=== PATIENT | male | born 1930 | race Caucasian/White ===

== ENCOUNTER → 2018-04-13 | Outpatient (CLI) | payer MEDICARE, BC ==
--- NOTE | 2018-04-13 20:49 | XCELERA REPORT ---
[address] [address] Lower Extremity Arterial Evaluation Name: JENNY SAWANT Age: 87 yrs Gender: Male : 1930 Patient Status: Outpatient Patient Location: RAD Study Date: 04/13/2018 10:37 AM Procedure: A color flow and duplex scan of the lower extremity arteries was performed bilaterally with velocity and waveform anaylsis. Ankle brachial indicies performed. Reason For Study: PVD Ordering Physician: CARLIE ROSARIO Performed By: Fidel Lopes Measurements and Calculations Right Left [employer] PSV 146.7 111.3 cm/sec Prox PFA PSV -73.2 -61.1 cm/sec Prox SFA PSV 89.3 89.4 cm/sec Mid SFA PSV -109.2 -109.4cm/sec Dist SFA PSV -97.4 -111.3cm/sec Prox Pop A PSV 82.0 100.6 cm/sec Dist PRECIOUS PSV 87.4 80.8 cm/sec Dist [employer] SALES [employer]ORDINATOR PSV 84.5 59.4 cm/sec Tye Pedis PSV -242.7 -125.1cm/sec Right Side Arterial Evaluation Normal velocity and triphasic waveforms noted from the Common Femoral artery to the infrageniculate vessels.Elecvated velocity in the Dorsalsi Pedis. Posibly srtefactual. 0 % stenosis. Ankle Brachial index is 1.17. Left Side Arterial Evaluation Normal velocity and triphasic waveforms noted from the Common Femoral artery to the infrageniculate vessels.Elecvated velocity in the Dorsalsi Pedis. Posibly srtefactual. 0 % stenosis. Ankle Brachial index is 1.22. Interpretation Summary No hemodynamically significant lesions in the bilateral lower extremities, on duplex imaging, at rest. : CARLIE ROSARIO > [facility]il[facility]
== END ==
LOC: RAD 09:39
PROVIDERS: ATTEND Internal Medicine
DX: M54.16 Radiculopathy, lumbar region (principal); M25.551 Pain in right hip; I73.9 Peripheral vascular disease, unspecified
CPT/HCPCS: 93925

== ENCOUNTER → 2018-04-17 | Outpatient (CLI) | payer MEDICARE, BC ==
--- NOTE | 2018-04-17 17:25 | RADIOLOGY REPORT (SQ) ---
EXAM DESCRIPTION: MRI RT LOWER JOINT WITHOUT COMPLETED DATE/TIME: 04/17/2018 5:01 pm REASON FOR STUDY: M54.16 RADICULOPATHY, LUMBAR REGION M25.551 PAIN IN RIGHT HIP M54.16 RADICULOPATH Y, LUMBAR REGION M25.551 PAIN IN RIGHT HIP COMPARISON: None. TECHNIQUE: Righthip images acquired and stored on PACS. Multiplanar images to include fat sensitive sequences as T1, fluid sensitive sequences as T2/STIR and gradient echo sequences. Large FOV fat and fluid sensitive sequences include pelvis and opposite hip. LIMITATIONS: None. FINDINGS: BONE CORTEX AND MARROW: No generalized marrow replacement. No occult fracture. No worriso me bone lesions. RIGHT HIP: FEMORAL HEAD: No occult fracture. No osteophytes or subchondral cysts. Normal sphericity of femoral h ead/neck junction. No acetabular dysplasia. No evidence femoroacetabular impingement. No significant effusion. Very mild chondromalacia right femoral head. ACETABULUM: No acetabular dysplasia. No subchondral cysts. LABRUM: Diffuse delamination. Labrum is normal size. No paralabral cysts. TROCHANTER: No trochanteric bursal effusion. No edema/fluid at the insertions of the gluteus medius and gluteus minimus. LEFT HIP: Limited evaluation. No worrisome bone lesions. No significant effusion. PELVIS, LOWER LUMBAR SPINE, SACROILIAC JOINTS: PELVIS : No insufficiency/stress fractures. No significant degenerative changes. Sacroiliac joints normal. L SPINE: No significant osteophytes or degenerative changes of the visualized lumbar spine. MUSCLES AND SOFT TISSUES: Adductors and piriformis normal. Abductors and greater trochanteric bursa n ormal without edema or fluid. Iliopsoas bursa without fluid. Hamstring attachments without edema or t ear. PELVIC SOFT TISSUES: Enlarged prostate IMPRESSION: Mild degenerative change right acetabular labrum without paralabral cyst. TECHNICAL DOCUMENTATION: JOB ID: [id number] [employer]- All Rights Reserved Reading location - IP/workstation name: [email or web address]
--- NOTE | 2018-04-17 17:29 | RADIOLOGY REPORT (SQ) ---
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 TECHNIQUE: Sagittal and Axial imaging includes T1, T2, STIR and gradient echo sequences. Coronal T2/ HASTE imaging. LIMITATIONS: None. FINDINGS: VISUALIZED UPPER ABDOMEN: Limited evaluation. No acute or suspicious findings suggested. SEGMENTATION: No transitional anatomy. The lowest well-developed disc space is labeled L5-S1. ALIGNMENT: Anatomic. VERTEBRAE: Intact. BONE MARROW: Normal. No marrow replacement or reactive changes. DISC SIGNAL: Diffuse decreased T2 weighted intervertebral disc signal POSTERIOR ELEMENTS: Generally intact. No pars defect evident. HARDWARE: None in the spine. CORD AND CONUS: Normal in size and signal intensity. Conus at the L1-2 level. SOFT TISSUES: No aortic aneurysm seen. No bulky retroperitoneal adenopathy or mass. No paraspinal mas s or fluid. T12-L1: Unremarkable L1-L2: Unremarkable L2-L3: Minimal posterior disc bulging, mild bilateral facet hypertrophy. No central stenosis. Mild inferior right foraminal narrowing. No left inferior foraminal narrowing. L3-L4: Broad diffuse posterior disc bulge is present with moderate bilateral facet and ligament hyper trophy. Mild central canal stenosis. High-grade right foraminal narrowing with effacement of the fa t around the exiting right L3 nerve root on sagittal image 5. Moderate left foraminal narrowing with out definite left exiting L3 nerve root impingement. L4-L5: Mild diffuse posterior disc bulge and bony spurring right greater than left, mild bilateral fa cet hypertrophy. No central stenosis. High-grade right foraminal narrowing with effacement of the f at around the exiting right L4 nerve root best shown on sagittal image 5. Moderate to high-grade lef t foraminal narrowing. L5-S1: Broad diffuse posterior disc bulge and bony spurring with moderate bilateral facet hypertrophy . No central stenosis. High-grade right foraminal narrowing, high-grade left foraminal narrowing wi th effacement of fat around the exiting L5 nerve roots bilaterally. SACRUM: Visualized upper sacrum intact. OTHER: No other significant findings. IMPRESSION: Multilevel significant lower lumbar foraminal narrowing TECHNICAL DOCUMENTATION: JOB ID: [id number] [employer]- All Rights Reserved Reading location - IP/workstation name: [email or web address]
== END ==
LOC: RAD 17:10
PROVIDERS: ATTEND Internal Medicine
DX: M25.551 Pain in right hip (principal); M54.16 Radiculopathy, lumbar region; I73.9 Peripheral vascular disease, unspecified; M48.061 Spinal stenosis, lumbar region without neurogenic claudication
CPT/HCPCS: 72148

== ENCOUNTER → 2020-01-14 | Outpatient (CLI) | payer MEDICARE, BC ==
--- NOTE | 2020-01-14 15:53 | RADIOLOGY REPORT (SQ) ---
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 TECHNIQUE: Multiplanar imaging includes non-contrasted T1, T2, FLAIR, and diffusion with ADC map seq uences. Images stored on PACS. LIMITATIONS: None. FINDINGS: There is diffuse age-appropriate cerebral and cerebellar volume loss. The caliber of the ventricles is concordant with the degree of sulcation. The mild areas of high T2/FLAIR signal throughout the supratentorial periventricular and subcortical white matter are nonspecific and likely represent the sequela of chronic microvascular ischemia. The re is no restricted diffusion on the DWI. There is no acute intracranial hemorrhage, extra-axial flu id collection, mass effect, vasogenic edema, or midline shift. The pagan-white matter differentiation is preserved. There is no effacement of the cerebral sulci or basal subarachnoid cisterns. The intracranial vascular flow voids are preserved. There is no susceptibility artifact on the gradi ent sequence. The globes are aphakic. The paranasal sinuses are clear. There is no bone marrow signal abnormality . IMPRESSION: No acute intracranial abnormality. EVIDENCE OF ACUTE STROKE: NO. TECHNICAL DOCUMENTATION: JOB ID: [id number] 2010 [employer]- All Rights Reserved Reading location - IP/workstation name: [email or web address]
== END ==
LOC: RAD 14:18
PROVIDERS: ATTEND Internal Medicine
DX: G46.4 Cerebellar stroke syndrome (principal)
CPT/HCPCS: 70551

== ENCOUNTER 2020-01-16 13:13 | Emergency (ER) | payer MEDICARE, BC ==
[2020-01-16] MEDS ORDERED: DIPH/PERTUSS(ACELL)/TETANUS VAC/PF 0.5 ML SYR (>=10YO) IM ONE (14:04)
--- NOTE | 2020-01-16 14:10 | RADIOLOGY REPORT (SQ) ---
EXAM DESCRIPTION: CT HEAD WITHOUT IMAGES COMPLETED DATE/TIME: 01/16/2020 1:58 pm REASON FOR STUDY: fall; lac to the back of the head COMPARISON: MRI a of the head without contrast from 01/14/2020. TECHNIQUE: Axial images acquired through the brain without intravenous contrast. Images reviewed wi th bone, brain and subdural windows. Additional sagittal and coronal reconstructions were generated. Images stored on PACS. All CT scanners at this facility use dose modulation, iterative reconstruction, and/or weight based d osing when appropriate to reduce radiation dose to as low as reasonably achievable (ALARA). [facility]: Dose Right [facility]: CareDose [facility]: Dose Right [facility]: Teradose 4D [facility]: [employer] RADIATION DOSE: CT Rad equipment meets quality standard of care and radiation dose reduction techniq ues were employed. CTDIvol: 53.2 mGy. DLP: 1044 mGy-cm. LIMITATIONS: None. FINDINGS: There is diffuse age-appropriate cerebral and cerebellar volume loss. The caliber of the ventricles is concordant with the degree of sulcation. The confluent areas of hypoattenuation throug hout the supratentorial periventricular and subcortical white matter correspond to the areas of high T2/FLAIR signal on the correlative MRI and likely represent the sequela of chronic microvascular isch emia. There is no acute intracranial hemorrhage, vascular territorial infarct, extra-axial fluid collection , mass effect or midline shift. The pagan-white matter differentiation is preserved. There is no eff acement of cerebral sulci or basal subarachnoid cisterns. The globes are aphakic. The orbits are intact. The paranasal sinuses are clear. There is no fractu re of the calvarium. IMPRESSION: No acute intracranial abnormality. EVIDENCE OF ACUTE STROKE: NO. COMMENT: Quality ID # [id number]: Final reports with documentation of one or more dose reduction techniques (e.g., Automated exposure control, adjustment of the mA and/or kV according to patient size, use of iterative reconstruction technique) TECHNICAL DOCUMENTATION: JOB ID: [id number] 2010 [employer]- All Rights Reserved Reading location - IP/workstation name: [email or web address]
--- NOTE | 2020-01-16 14:11 | ER Document Report ---
ED Fall - General Chief Complaint: Fall Injury Stated Complaint: FALL Time Seen by Provider: 01/16/20 13:44 Primary Care Provider: CARLIE ROSARIO MD [Primary Care Provider] - Follow up tomorrow Information source: Patient Notes: Patient reports that he was at work and lost his footing and fell hitting the back of his head. Patient states that occasionally when he gets up he will feel off balance. Patient states he does have a history of vertigo and his blood pressure has been low recently. Patient denies any loss of consciousness. Patient denies any nausea or vomiting. TRAVEL OUTSIDE OF THE [place] IN LAST 30 DAYS: No - HPI Occurred: Just prior to arrival Where: Work Context: Tripped Associated symptoms: denies: Lost consciousness Location of injury/pain: Head Quality of pain: Achy Pain Level: 1 Prehospital interventions: C-collar - Related data Allergies/Adverse Reactions: No Known Allergies Allergy (Verified 01/16/20 13:24) Past Medical History - General Information source: Patient - Social History Smoking Status: Never Smoker Frequency of alcohol use: None Drug Abuse: None Occupation: [employer] business Family History: Reviewed & Not Pertinent Patient has homicidal ideation: No Neurological Medical History: Reports: Other - Vertigo Renal/ Medical History: Reports: Hx Benign Prostatic Hyperplasia Surgical Hx: Negative Review of Systems - Review of Systems Constitutional: No symptoms reported. denies: Fever EENT: No symptoms reported Cardiovascular: No symptoms reported. denies: Chest pain, Syncope, Dizziness Respiratory: No symptoms reported. denies: Cough, Short of breath Gastrointestinal: No symptoms reported. denies: Abdominal pain, Nausea, Vomiting Genitourinary: No symptoms reported Male Genitourinary: No symptoms reported Musculoskeletal: No symptoms reported. denies: Back pain, Neck pain Skin: Other - Laceration of scalp Hematologic/Lymphatic: No symptoms reported Neurological/Psychological: Other - Vertigo Physical Exam - Vital signs Vitals: Temp 98.4 F 01/16/20 13:14 - General General appearance: Appears well, Alert In distress: None - HEENT Head: Tenderness - occipital. No: Abrasions, Ecchymosis, Racoon's eyes Eyes: Normal Conjunctiva: Normal Extraocular movements intact: Yes Pupils: PERRL Nasal: Normal Mouth/Lips: Normal Mucous membranes: Normal Neck: Normal, Supple. No: Lymphadenopathy - Respiratory Respiratory status: No respiratory distress Chest status: Nontender Breath sounds: Normal. No: Rales, Rhonchi, Stridor, Wheezing Chest palpation: Normal - Cardiovascular Rhythm: Regular Heart sounds: S1 appreciated, S2 appreciated - Abdominal Inspection: Normal Distension: No distension Bowel sounds: Normal Tenderness: Nontender Organomegaly: No organomegaly - Back Back: Normal, Nontender. No: Vertebra tenderness - Extremities General upper extremity: Normal inspection, Nontender, Normal strength General lower extremity: Normal inspection, Nontender, Normal strength - Neurological Neuro grossly intact: Yes Cognition: Normal Felix Coma Scale Eye Opening: Spontaneous Felix Coma Scale Verbal: Oriented [place] Coma Scale Motor: Obeys Commands [place] Coma Scale Total: 15 - Psychological Associated symptoms: Normal affect, Normal mood - Skin Skin Temperature: Warm Skin Moisture: Dry Skin Color: Normal Skin irregularity: Laceration - occipital scalp lac Course - Re-evaluation Re-evalutation: 01/16/20 14:50 offered patient wound closure with a single staple, patient declines stating that if wound is not gaping he preferred to not have any wound closure at this time. Patient states that whenever he stands he did become dizzy. We will obtain orthostatics and treat symptomatically at this time. 01/16/20 18:00 Patient states that he is agreeable with skin glue adhesive closure at this time. 01/16/20 18:37 Patient with stable vital signs, patient without any acute findings on CT imaging. Patient with normal EKG and normal delta troponin at this time. Patient was initially orthostatic and was treated with IV fluid bolus. Will advise for outpatient follow-up with his primary doctor for reevaluation. Discussed worsening signs or symptoms of patient to return medially for. Patient verbalized understanding and is agreeable with plan of care. - Vital Signs Vital signs: Temp Pulse Resp BP Pulse Ox 97.7 F 78 16 123/45 L 99 01/16/20 19:28 01/16/20 19:28 01/16/20 19:28 01/16/20 19:28 01/16/20 19:28 - Laboratory Result Diagrams: 01/16/20 13:34 01/16/20 13:34 Laboratory results interpreted by me: 01/16/20 01/16/20 01/16/20 13:34 13:34 14:15 RBC 4.00 L Hgb 13.3 L Sodium 136.6 L BUN 24 H Est GFR (MDRD) Non-Af 56 L Glucose 113 H Urine Blood SMALL H Labs- All tests 24 hr 01/16/20 01/16/20 01/16/20 13:34 13:34 13:34 WBC 4.9 RBC 4.00 L Hgb 13.3 L Hct 38.1 MCV 95 MCH 33.3 MCHC 35.0 RDW 13.9 Plt Count 199 Lymph % (Auto) 21.9 [place] % (Auto) 7.8 Eos % (Auto) 3.7 Baso % (Auto) 0.7 Absolute Neuts (auto) 3.3 Absolute Lymphs (auto) 1.1 Absolute Monos (auto) 0.4 Absolute Eos (auto) 0.2 Absolute Basos (auto) 0.0 Seg Neutrophils % 65.9 Sodium 136.6 L Potassium 4.7 Chloride 104 Carbon Dioxide 26 Anion Gap 7 BUN 24 H Creatinine 1.23 Est GFR ( Amer) > 60 Est GFR (MDRD) Non-Af 56 L Glucose 113 H Calcium 9.2 Total Bilirubin 0.9 Direct Bilirubin 0.1 Neonat Total Bilirubin Not Reportable Neonat Direct Bilirubin Not Reportable Neonat Indirect Bili Not Reportable AST 18 ALT 11 Alkaline Phosphatase 71 Troponin I < 0.012 Total Protein 7.2 Albumin 4.3 Urine Color Urine Appearance Urine pH Ur Specific [place] Urine Protein Urine Glucose (UA) Urine Ketones Urine Blood Urine Nitrite Urine Bilirubin Urine Urobilinogen Ur Leukocyte Esterase Urine WBC (Auto) Urine RBC (Auto) Urine Mucus (Auto) Urine Ascorbic Acid 01/16/20 01/16/20 14:15 14:54 WBC RBC Hgb Hct MCV MCH MCHC RDW Plt Count Lymph % (Auto) [place] % (Auto) Eos % (Auto) Baso % (Auto) Absolute Neuts (auto) Absolute Lymphs (auto) Absolute Monos (auto) Absolute Eos (auto) Absolute Basos (auto) Seg Neutrophils % Sodium Potassium Chloride Carbon Dioxide Anion Gap BUN Creatinine Est GFR ( Amer) Est GFR (MDRD) Non-Af Glucose Calcium Total Bilirubin Direct Bilirubin Neonat Total Bilirubin Neonat Direct Bilirubin Neonat Indirect Bili AST ALT Alkaline Phosphatase Troponin I < 0.012 Total Protein Albumin Urine Color STRAW Urine Appearance CLEAR Urine pH 6.0 Ur Specific [place] 1.008 Urine Protein NEGATIVE Urine Glucose (UA) NEGATIVE Urine Ketones NEGATIVE Urine Blood SMALL H Urine Nitrite NEGATIVE Urine Bilirubin NEGATIVE Urine Urobilinogen NEGATIVE Ur Leukocyte Esterase NEGATIVE Urine WBC (Auto) 1 Urine RBC (Auto) 1 Urine Mucus (Auto) RARE Urine Ascorbic Acid NEGATIVE - Diagnostic Test Radiology reviewed: Reports reviewed - EKG Interpretation by Me EKG shows normal: Sinus rhythm Rate: Normal Rhythm: NSR [place]/QRS: RBBB Additional EKG results interpreted by me: 01/16/20 14:34 No acute ischemic change, QTC 477, sinus rhythm with rate of 68 Procedures - Laceration/Wound Repair Head Wound length (cm): 1 Wound's Depth, Shape: Irregular Laceration pre-procedure: Shur-Clens applied Wound explored: Clean Wound Repaired With: Dermabond Post-procedure NV exam normal: Yes Complications: No Adult Head Front/Back picture: 1 - Irregular laceration Discharge - Discharge Clinical Impression: Dizziness, Dehydration Head injury Qualifiers: Encounter type: initial encounter Qualified Code(s): S09.90XA - Unspecified injury of head, initial encounter Condition: Stable Disposition: HOME, SELF-CARE Instructions: Acetaminophen, Dizziness ([facility]), Head Injury Precautions ([facility]), Skin Adhesive Closure ([facility]), Vertigo ([facility]) Additional Instructions: Return immediately for any new or worsening symptoms Followup with your primary care provider, call tomorrow to make a followup appointment Change positions slowly when you are getting up to prevent falls Stay well-hydrated Referrals: CARLIE ROSARIO MD [Primary Care Provider] - Follow up tomorrow
[2020-01-16 14:12] LABS: ABSOLUTE EOSINOPHILS # (AUTO) 0.2 10^3/uL (0.0-0.6); ABSOLUTE LYMPHOCYTES (AUTO) 1.1 10^3/uL (0.5-4.7); ABSOLUTE MONOCYTES (AUTO) 0.4 10^3/uL (0.1-1.4); ABSOLUTE NEUT (AUTO) 3.3 10^3/uL (1.7-8.2); TOTAL CELLS COUNTED % (AUTO) 100 %
--- NOTE | 2020-01-16 14:15 | RADIOLOGY REPORT (SQ) ---
EXAM DESCRIPTION: CT CERVICAL SPINE WITHOUT IMAGES COMPLETED DATE/TIME: 01/16/2020 1:58 pm REASON FOR STUDY: fall; lac to the back of the head COMPARISON: None. TECHNIQUE: Axial images acquired through the cervical spine without intravenous contrast. Images re viewed with lung, soft tissue and bone windows. Reconstructed coronal and sagittal MPR images review ed. Images stored on PACS. All CT scanners at this facility use dose modulation, iterative reconstruction, and/or weight based d osing when appropriate to reduce radiation dose to as low as reasonably achievable (ALARA). [facility]: Dose Right [facility]: CareDose [facility]: Dose Right [facility]: Teradose 4D [facility]: [employer] RADIATION DOSE: CT Rad equipment meets quality standard of care and radiation dose reduction techniq ues were employed. CTDIvol: 19.4 mGy. DLP: 443 mGy-cm. LIMITATIONS: None. FINDINGS: ALIGNMENT: There is straightening of the normal lordotic curvature of the cervical spine w ith grade 1 retrolisthesis of C2 relative to C3 and of C6 relative to C7. There is no craniocervical or atlantoaxial dissociation. MINERALIZATION: Osteopenia. VERTEBRAL BODIES: The cervical vertebral body heights are intact. There is no fracture. DISCS: The intervertebral discs from C3-C4 to C7-T1 are narrowed. At C5-C6 there is a posterior oste ophytic ridge that encroaches on the ventral aspect of the thecal sac. FACETS, LATERAL MASSES, POSTERIOR ELEMENTS: There is moderate foraminal stenosis bilaterally at C5-C6 and C6-C7 due to a combination of facet joint arthropathy and uncovertebral hypertrophy. There is n o fracture or malalignment. HARDWARE: None in the spine. VISUALIZED RIBS: No fractures. LUNG APICES AND SOFT TISSUES: The thyroid gland is enlarged and heterogeneous. OTHER: No other finding. IMPRESSION: No acute fracture or malalignment of the cervical spine. TECHNICAL DOCUMENTATION: JOB ID: [id number] Quality ID # [id number]: Final reports with documentation of one or more dose reduction techniques (e.g., Au tomated exposure control, adjustment of the mA and/or kV according to patient size, use of iterative reconstruction technique) 2010 [employer]- All Rights Reserved Reading location - IP/workstation name: [email or web address]
[2020-01-16 14:21] LABS: BASOPHILS % (AUTO) 0.7 % (0-2); EOSINOPHILS % (AUTO) 3.7 % (0-6); HEMATOCRIT 38.1 % (37.9-51.0); HEMOGLOBIN 13.3 g/dL (13.5-17.0); LYMPHOCYTES % (AUTO) 21.9 % (13-45); MEAN CORPUSCULAR HEMOGLOBIN 33.3 pg (27.0-33.4); MEAN CORPUSCULAR VOLUME 95 fl (80-97); MONOCYTES % (AUTO) 7.8 % (3-13); PLATELET COUNT 199 10^3/uL (150-450); RED CELL DISTRIBUTION WIDTH 13.9 % (11.5-14.0); SEGMENTED NEUTROPHILS % (AUTO) 65.9 % (42-78); WHITE BLOOD COUNT 4.9 10^3/uL (4.0-10.5)
[2020-01-16 14:22] LABS: ALBUMIN 4.3 g/dL (3.5-5.0); ALKALINE PHOSPHATASE 71 U/L (38-126); ANION GAP 7 (5-19); ASPARTATE AMINO TRANSFERASE 18 U/L (17-59); BILIRUBIN,DIRECT 0.1 mg/dL (0.0-0.4); BILIRUBIN,TOTAL 0.9 mg/dL (0.2-1.3); BLOOD UREA NITROGEN 24 mg/dL (7-20); CALCIUM 9.2 mg/dL (8.4-10.2); CARBON DIOXIDE 26 mmol/L (22-30); CHLORIDE 104 mmol/L (98-107); GLUCOSE 113 mg/dL (75-110); POTASSIUM 4.7 mmol/L (3.6-5.0); TOTAL PROTEIN 7.2 g/dL (6.3-8.2)
[2020-01-16 14:45] LABS: APPEARANCE,URINE CLEAR; BILIRUBIN,URINE NEGATIVE (NEGATIVE); COLOR,URINE STRAW; GLUCOSE, URINE NEGATIVE (NEGATIVE); KETONES,URINE NEGATIVE (NEGATIVE); LEUKOCYTE ESTERASE,URINE NEGATIVE (NEGATIVE); NITRITE,URINE NEGATIVE (NEGATIVE); PROTEIN,URINE NEGATIVE (NEGATIVE); URINE SPECIFIC GRAVITY 1.008; UROBILINOGEN,URINE NEGATIVE mg/dL (<2.0)
[2020-01-16] MEDS ORDERED: MECLIZINE HCL 25 MG TABLET PO ONE (14:47)
[2020-01-16] MEDS ORDERED: ONDANSETRON 4 MG TAB.RAPDIS PO ONE (14:47)
[2020-01-16] MEDS ORDERED: NORMAL SALINE 1000 ML 1,000 ML IV ONE (15:20)
[2020-01-16 19:34] VITALS: BP 123/45
--- NOTE | 2020-01-17 08:02 | EKG REPORT ---
SEVERITY:- ABNORMAL ECG - SINUS RHYTHM RIGHT BUNDLE BRANCH BLOCK : Confirmed by: Tracie Cardoso MD 17-Jan-2020 08:01:45
== END 2020-01-16 19:31 | disposition home or self-care (01) ==
LOC: ER 13:13
DX: S01.01XA Laceration without foreign body of scalp, initial encounter (principal); W19.XXXA Unspecified fall, initial encounter; Y99.0 Civilian activity done for income or pay; I45.10 Unspecified right bundle-branch block; E86.0 Dehydration; R42 Dizziness and giddiness
CPT/HCPCS: 93005; 99284; 96360; 36415; 85025; 80053; 81001; 84484; 70450; 72125; 90715; 93010; 12001; A9270 ×2; J7030; S0119

== ENCOUNTER → 2020-02-28 | Outpatient (CLI) | payer MEDICARE, BC ==
--- NOTE | 2020-02-28 18:05 | RADIOLOGY REPORT (SQ) ---
EXAM DESCRIPTION: CTA CHEST IMAGES COMPLETED DATE/TIME: 02/28/2020 5:30 pm REASON FOR STUDY: R06.02 SHORTNESS OF BREATH R06.02 SHORTNESS OF BREATH COMPARISON: None. TECHNIQUE: CT scan of the chest performed using helical scanning technique with dynamic intravenous contrast injection. Images reviewed with lung, soft tissue and bone windows. Reconstructed coronal and sagittal MPR images reviewed. Additional 3 dimensional post-processing performed to develop Maximal Intensity Projection images (FL P). All images stored on PACS. All CT scanners at this facility use dose modulation, iterative reconstruction, and/or weight based d osing when appropriate to reduce radiation dose to as low as reasonably achievable (ALARA). [facility]: Dose Right [facility]: CareDose [facility]: Dose Right [facility]: Teradose 4D [facility]: [employer] CONTRAST TYPE AND DOSE: contrast/concentration: Isovue 300.00 mmol/ml; Total Contrast Delivered: 74. 0 ml; Total Saline Delivered: 36.3 ml 74 mL Isovue 300- low osmolar. Contrast bolus adequate for pulmonary arteries and aorta. RENAL FUNCTION: Creatinine 1.6 RADIATION DOSE: CT Rad equipment meets quality standard of care and radiation dose reduction techniq ues were employed. CTDIvol: 6.6 - 25.4 mGy. DLP: 1072 mGy-cm. . LIMITATIONS: None. FINDINGS: LUNGS AND PLEURA: Pleural/parenchymal scarring in the apices. No masses, infiltrates, or pleural effusions. AORTA AND GREAT VESSELS: No aneurysm. No dissection. HEART: Cardiomegaly. No pericardial effusion. No significant coronary artery calcifications. PULMONARY ARTERIES: No emboli visualized in the main pulmonary arteries or the segmental branches. HILAR AND MEDIASTINAL STRUCTURES: No identified masses or abnormal nodes. HARDWARE: None in the chest. UPPER ABDOMEN: No significant findings. Limited exam. THYROID AND OTHER SOFT TISSUES: The thyroid appears somewhat prominent but there are no masses. BONES: No acute or significant finding. 3D MIPS: Confirm above findings. OTHER: No other significant finding. IMPRESSION: There is no pulmonary embolus. There is no aortic aneurysm or dissection. There is car diomegaly. No pulmonary edema. Prominent thyroid gland but no discrete mass. COMMENT: Quality ID # 436: Final reports with documentation of one or more dose reduction techniques (e.g., Automated exposure control, adjustment of the mA and/or kV according to patient size, use of iterative reconstruction technique) TECHNICAL DOCUMENTATION: JOB ID: [id number] 2010 [employer]- All Rights Reserved Reading location - IP/workstation name: [email or web address]
== END ==
LOC: RAD 16:55
PROVIDERS: ATTEND Internal Medicine
DX: R06.02 Shortness of breath (principal)
CPT/HCPCS: 71275; 82565

== ENCOUNTER → 2020-06-03 | Outpatient (CLI) | payer MEDICARE, BC ==
--- NOTE | 2020-06-03 16:23 | RADIOLOGY REPORT (SQ) ---
EXAM DESCRIPTION: SCAPULA RIGHT IMAGES COMPLETED DATE/TIME: 06/03/2020 4:03 pm REASON FOR STUDY: PAIN IN RT SHOULDER M25.511 PAIN IN RIGHT SHOULDER COMPARISON: None. NUMBER OF VIEWS: Three views. TECHNIQUE: Internal rotation, external rotation, and Y view images acquired of the right shoulder. LIMITATIONS: None. FINDINGS: MINERALIZATION: Normal. BONES: No acute fracture . No worrisome bone lesions. No significant osteophytes. SOFT TISSUES: No calcifications. VISUALIZED RIBS, SPINE, AND LUNG: Healed right-sided rib fractures. OTHER: No other significant finding. IMPRESSION: NEGATIVE STUDY OF THE RIGHT SHOULDER. NO RADIOGRAPHIC EVIDENCE OF ACUTE INJURY. NO EXPLA NATION FOR PAIN. TECHNICAL DOCUMENTATION: JOB ID: [id number] 2010 [employer]- All Rights Reserved Reading location - IP/workstation name: [email or web address]
--- NOTE | 2020-06-03 16:23 | RADIOLOGY REPORT (SQ) ---
EXAM DESCRIPTION: SHOULDER RIGHT 2 OR MORE VIEWS IMAGES COMPLETED DATE/TIME: 06/03/2020 4:03 pm REASON FOR STUDY: PAIN IN RT SHOULDER M25.511 PAIN IN RIGHT SHOULDER COMPARISON: None. NUMBER OF VIEWS: Three views. TECHNIQUE: Internal rotation, external rotation, and Y view images acquired of the right shoulder. LIMITATIONS: None. FINDINGS: MINERALIZATION: Normal. BONES: No acute fracture. No worrisome bone lesions. JOINTS: Joint space narrowing in the AC joint with small osteophytes. VISUALIZED LUNGS AND RIBS: Healed right-sided rib fractures. SOFT TISSUES: No radiopaque foreign body. OTHER: No other significant finding. 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 No acute findings. TECHNICAL DOCUMENTATION: JOB ID: [id number] 2010 [employer]- All Rights Reserved Reading location - IP/workstation name: [email or web address]
== END ==
LOC: OD 15:42
PROVIDERS: ATTEND Internal Medicine
DX: M25.511 Pain in right shoulder (principal)